=== PATIENT | male | born 1970 | race American Indian/Alaskan Native ===

== ENCOUNTER 2020-06-15 14:26 | Emergency (ER) | payer SELFPAY ==
[2020-06-15 14:40] VITALS: BP 106/72
[2020-06-15 15:45] LABS: Bacteria,Urine 2+ /HPF (Negative); Bilirubin,Urine NEG (Negative); Blood,Urine LG (Negative); Color,Urine Yellow (Yellow); Mucus,Urine FEW /HPF; Urobilinogen,Urine < 2.0 mg/dL (<2.0)
[2020-06-15 15:54] LABS: RBC,Urine > 182.0 /HPF (0.0-6.0); WBC,Urine > 182.0 /HPF (0.0-6.0)
[2020-06-15] MEDS ORDERED: SODIUM CHLORIDE 0.9% 1000 ML 1,000 ML IV ONE (16:31)
[2020-06-15] MEDS ORDERED: cefTRIAXone/NS 1 GM/50 ML 1 GM/50 ML BAG IV ONE (16:31)
--- NOTE | 2020-06-15 16:40 | Emergency Department Report ---
ED Male HPI - General Chief complaint: Urogenital-Male Stated complaint: CANT PEE Source: patient Mode of arrival: Ambulatory Limitations: No Limitations - History of Present Illness Initial comments: 50 y/o male comes in reporting he can not pee. Patient states he feels like he is not empty his bladder and is having blood in his urie at the end of his stream. Patient does admit to having unprotected intercourse. Denies any back, pelvic or dysuria. No fever or chills. MD Complaint: dysuria -: This morning Location: penis Radiation: none Severity: moderate Worsens with: urination new sexual partner discharge, urinary retention, blood in urine - Related Data Sexually active: Yes Previous Rx's Medication Instructions Recorded Last Taken Type Azithromycin [Zithromax] 1,000 mg PO ONCE #4 tablet 06/15/20 Unknown Rx Doxycycline Hyclate [Doxycycline 100 mg PO Q12HR 10 Days #20 tab 06/15/20 Unknown Rx Hyclate TAB] Allergies Allergy/AdvReac Type Severity Reaction Status Date / Time No Known Allergies Allergy Unverified 06/15/20 14:37 ED Review of Systems ROS: Stated complaint: CANT PEE Other details as noted in HPI Comment: All other systems reviewed and negative ED Past Medical Hx - Past Medical History Previous Medical History?: No - Surgical History Past Surgical History?: No - Medications Home Medications: Home Medications Medication Instructions Recorded Confirmed Last Taken Type Azithromycin [Zithromax] 1,000 mg PO ONCE #4 tablet 06/15/20 Unknown Rx Doxycycline Hyclate [Doxycycline 100 mg PO Q12HR 10 Days #20 tab 06/15/20 Unknown Rx Hyclate TAB] ED Physical Exam - General Limitations: No Limitations General appearance: alert, in no apparent distress - Head Head exam: Present: atraumatic, normocephalic - Eye Eye exam: Present: normal appearance - ENT ENT exam: Present: mucous membranes moist - Neck Neck exam: Present: normal inspection - Respiratory Respiratory exam: Present: normal lung sounds bilaterally. Absent: respiratory distress - Cardiovascular Cardiovascular Exam: Present: regular rate, normal rhythm. Absent: systolic murmur, diastolic murmur, rubs, gallop - GI/Abdominal GI/Abdominal exam: Present: soft, normal bowel sounds - Rectal Rectal exam: Present: deferred - Extremities Exam Extremities exam: Present: normal inspection - Back Exam Back exam: Present: normal inspection - Neurological Exam Neurological exam: Present: alert, oriented X3 - Psychiatric Psychiatric exam: Present: normal affect, normal mood - Skin Skin exam: Present: warm, dry, intact, normal color. Absent: rash ED Course Vital Signs 06/15/20 14:38 Temperature 98.9 F Pulse Rate 106 H Respiratory 20 Rate Blood Pressure 106/72 O2 Sat by Pulse 98 Oximetry ED Medical Decision Making - Medical Decision Making 50 y/o male comes in reporting he can not pee. Patient states he feels like he is not empty his bladder and is having blood in his urie at the end of his stream. Patient does admit to having unprotected intercourse. Denies any back, pelvic or dysuria. No fever or chills. Patient givin an IV normal saline and Rocephin 1 gram and will be discharges on Doxycycline 100mg bid times 10days and zithromax 1gram. Critical care attestation.: If time is entered above; I have spent that time in minutes in the direct care of this critically ill patient, excluding procedure time. ED Disposition Clinical Impression: Urethritis, nonspecific Disposition: DC-01 TO HOME OR SELFCARE Is pt being admited?: No Does the pt Need Aspirin: No Condition: Stable Instructions: Nonspecific Urethritis in Men (ED) Additional Instructions: Complete medications increase fluids follow up with health department and urologist. Prescriptions: Doxycycline Hyclate [Doxycycline Hyclate TAB] 100 mg PO Q12HR 10 Days #20 tab Azithromycin [Zithromax] 1,000 mg PO ONCE #4 tablet Referrals: PRIMARY CARE, [Primary Care Provider] - 3-5 Days Forms: STI Treatment and Prevention
== END 2020-06-15 18:45 | disposition home or self-care (01) ==
LOC: ED 14:26
DX: N34.2 Other urethritis (principal); Z79.899 Other long term (current) drug therapy
CPT/HCPCS: 81001; 96365; 96366; 99283; J0696; J7030

== ENCOUNTER 2021-12-13 15:35 | Emergency (ER) | payer OTHER ==
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
[2021-12-13] MEDS ORDERED: ACETAMINOPHEN 325 MG TAB PO ONE (21:54)
[2021-12-13] MEDS ORDERED: IBUPROFEN 400 MG TAB PO ONE (21:54)
[2021-12-13 22:55] VITALS: BP 121/76
== END 2021-12-13 22:55 | disposition home or self-care (01) ==
LOC: ED 15:35
DX: M25.512 Pain in left shoulder (principal); Z79.899 Other long term (current) drug therapy; V89.2XXA Person injured in unspecified motor-vehicle accident, traffic, initial encounter; Y93.89 Activity, other specified; Y92.488 Other paved roadways as the place of occurrence of the external cause; Y99.8 Other external cause status
CPT/HCPCS: 99283